=== PATIENT | female | born 1955 | race African-American/Black ===

== ENCOUNTER 2018-06-20 09:00 | Outpatient (RCR) | payer OTHER, SELFPAY | END 2018-06-20 14:05 | disposition home or self-care (01) | LOC: PT 09:00 | PROVIDERS: Visit Provider Family Medicine | DX: W54.0XXA Bitten by dog, initial encounter; S81.852A Open bite, left lower leg, initial encounter | CPT/HCPCS: 29580; 97161; 97597; 97598 ==